=== PATIENT | female | born 2005 | race Caucasian/White ===

== ENCOUNTER 2024-11-23 20:42 | Emergency (ER) | payer SELFPAY ==
[2024-11-23 20:45] VITALS: BP 121/96; PULSE 118; TEMP 36.9; O2SAT 98; BMI 23.6
--- NOTE | 2024-11-23 20:51 | US_ITS ---
The [address] [address] Patient Name: JODEE ANG MRN: [id number] date: 2005 Sex: F Assigned Patient Location: ER Current Patient Location: ER Accession/Order Number: [id number] Exam Date: 11/23/2024 21:20 Report Date: 11/23/2024 22:28 At the request of: MITALI GARDINER Procedure: US OB transvaginal US OB transvaginal HISTORY: vag bleed COMPARISONS: None TECHNIQUE: Transvaginal imaging the pelvis was performed. FINDINGS: There is a gestational sac and a pole. However, there is no heartbeat. The yolk sac is not well delineated. RIGHT OVARY: Within normal limits without suspicious masses or cyst. There is normal blood flow. The right ovary measures 2.5 x 1.5 x 2.4 cm. LEFT OVARY: Within normal limits without suspicious masses or cyst. There is normal blood flow. The left ovary measures 2.2 x 1.9 x 1.2 cm. OTHER:There is no significant free fluid in the pelvis. US/US OB transvaginal IMPRESSION: There is a gestational sac and a . However, there is no definitive heartbeat. This could be due to early gestational age. Correlation with serial beta hCG levels is recommended. Repeat sonography can be performed in one to 2 weeks. Electronically authenticated by: GLADIS MOROCHO Date: 11/23/2024 22:28
--- NOTE | 2024-11-23 20:54 | ED_ITS ---
HPI HPI - General Adult General Chief complaint: Vaginal Bleeding Stated complaint: BLEEDING 5 WKS Time Seen by Provider: 11/23/24 20:51 Source: patient Mode of arrival: walk-in History of Present Illness HPI narrative: Patient is a 19-year-old who is presenting to the ER with chief complaint of vaginal bleeding. Patient is a G1, P0. Patient did [id number] test 3 of them 3 days ago and found out that she was . She is not taking vitamins. Patient boyfriend is at bedside. Patient has no HV[employer] MECH[employer]. Patient denies any type of abuse, assault, falls, trauma or accidents. Patient has had no traumatic intercourse last 24 hours. No foreign bodies or any other products into the vaginal canal. No bowel or bladder changes. Patient is also having left-sided left lateral chest wall pain as well. Patient stated that she started bleeding approximately 2 hours prior to arrival with mild to moderate amount of blood and clots. Patient's bleeding has been continuous for the past 2 hours. All systems are negative except as noted/marked. All systems reviewed and otherwise negative. Nurses note and vital signs reviewed and patient is not hypoxic. Nurses note and vital signs reviewed and patient is not hypoxic. General: The patient appears well and in no apparent distress. Patient is resting comfortably on cart. Skin: Warm, dry, no pallor noted. There is no rash noted. Head: Normocephalic, atraumatic Eye: Normal conjunctiva Ears, Nose, Mouth, and Throat: oral mucosa is moist Cardiovascular: Regular Rate and Rhythm Respiratory: Patient is in no distress, no accessory muscle use, lungs are clear to auscultation, no wheezing, rales or rhonchi Back: non-tender, no CVA tenderness bilaterally to percussion. GI: Normal bowel sounds, no tenderness to palpation, no masses appreciated. No rebound guarding, or rigidity noted. : Pelvic exam was completed with Fay Montero RN at bedside for entire duration of the exam. Speculum exam showed normal external genitalia, there was no evidence of white/clear discharge in vaginal vault. There was moderate amount of evidence of blood and small clot noted in the vaginal vault. Patient's os was open. Bimanual exam showed no cervical motion tenderness, no adnexal tenderness, no masses were appreciated. Os is closed. Musculoskeletal: The patient has no evidence of calf tenderness, no pitting edema, symmetrical pulses noted bilaterally Neurological: A&O x4, normal speech Psychiatric: Cooperative Related Data Allergies Allergy/AdvReac Type Severity Reaction Status Date / Time No Known Drug Allergies Allergy Verified 11/23/24 20:49 Opioid HPI Opioid Management Most Recent Opioid Data: Last Pain Scale 3 11/23/24 20:50 11/23/24 PFSH PFSH Social History Little interest or pleasure in doing things: not at all Feeling down, depressed, or hopeless: not at all Exam Constitutional Vital Signs, click to edit/add: Last Vital Signs Temp 98.4 F 11/23/24 20:45 Pulse 90 11/23/24 22:23 Resp 18 11/23/24 20:45 BP 121/96 H 11/23/24 20:45 Pulse Ox 98 11/23/24 20:45 O2 Del Method Room Air 11/23/24 20:45 Course Vital Signs Vital signs: Vital Signs Temperature 98.4 F 11/23/24 20:45 Pulse Rate 118 H 11/23/24 20:45 Respiratory Rate 18 11/23/24 20:45 Blood Pressure 121/96 H 11/23/24 20:45 Pulse Oximetry 98 11/23/24 20:45 Oxygen Delivery Method Room Air 11/23/24 20:45 Temperature 98.4 F 11/23/24 20:45 Pulse Rate 90 11/23/24 22:23 Respiratory Rate 18 11/23/24 20:45 Blood Pressure 121/96 H 11/23/24 20:45 Pulse Oximetry 98 11/23/24 20:45 Oxygen Delivery Method Room Air 11/23/24 20:45 Medical Decision Making [facility] Narrative Medical decision making narrative: 2209 patient's case was discussed with Dr. Lott. Patient's hCG quant is 11,000. Ultrasound shows IMPRESSION: There is a gestational sac and a . However, there is no definitive heartbeat. This could be due to early gestational age. Correlation with serial beta hCG levels is recommended. Repeat sonography can be performed in one to 2 weeks. Patient increase fluids. Patient use Tylenol as needed for pain. Patient will call Dr. Lott on Tuesday for repeat evaluation. A repeat hCG was given to the patient to draw on Tuesday, with results going to Dr. Lott. Patient understands this. If patient is having any significant or severe pain, if patient is having significant amount of vaginal bleeding, lightheaded, dizzy, shortness of breath, return back to the ER for reevaluation. Patient understands this very clearly. Patient was told this and this was Printed on paperwork Lab Data Labs: Lab Results 11/23/24 Range/Units 21:00 WBC 13.7 H (4.0-11.0) 10^3/uL RBC 4.64 (4.20-5.40) 10^6/uL Hgb 14.0 (12.0-16.0) g/dL Hct 41.6 (36.0-48.0) % MCV 89.7 (81.0-99.0) fL MCH 30.2 (26.7-34.0) pg MCHC 33.7 (29.9-35.2) g/dL RDW 12.8 (11.0-15.0) % Plt Count 264 (150-450) 10^3/uL MPV 11.3 (9.5-13.5) fL Neut % (Auto) 65.5 (43.0-75.0) % Lymph % (Auto) 26.0 (20.5-60.0) % [place] % (Auto) 6.8 (1.7-12.0) % Eos % (Auto) 1.2 (0.9-7.0) % Baso % (Auto) 0.4 (0.2-2.0) % Neut # (Auto) 9.0 H (1.4-6.5) 10^3/uL Lymph # (Auto) 3.6 (1.2-3.8) 10^3/uL [place] # (Auto) 0.9 H (0.3-0.8) 10^3/uL Eos # (Auto) 0.2 (0.0-0.7) 10^3/uL Baso # (Auto) 0.1 (0.0-0.1) 10^3/uL Abs Immat Gran (auto) 0.02 (0.00-0.03) 10^3/uL Imm/Tot Granulo (auto) 0.1 (0.0-0.5) % HCG, Quant 10544 mIU/mL Blood Type A Negative Discharge Plan Discharge Chief Complaint: Vaginal Bleeding Clinical Impression: Threatened miscarriage Patient Disposition: Home, Self-Care Time of Disposition Decision: 22:33 Condition: Fair Print Language: Amharic Instructions: Threatened Miscarriage (ED) Additional Instructions: Increase fluids at home, Gatorade, Powerade, water. Use Tylenol every 4 hours as needed for pain, max dose of Tylenol is 3000 mg [address] Lott on Tuesday for follow-up in the office. He will need to have a complete pelvic and Pap exam done since you are 19 years old and sexually active. If you are having intractable abdominal pain, significant vaginal bleeding, or any other acute complaints, return back to the ER Referrals: Physician,Non-Staff, MD [Primary Care Provider] - 1 week
[2024-11-23 21:11] LABS: Basophils Absolute Auto 0.1 10^3/uL (0.0-0.1); Basophils Percent Auto 0.4 % (0.2-2.0); Eosinophils Absolute Auto 0.2 10^3/uL (0.0-0.7); Eosinophils Percent Auto 1.2 % (0.9-7.0); Hematocrit 41.6 % (36.0-48.0); Immature Granulocytes Abs Auto 0.02 10^3/uL (0.00-0.03); Immature Granulocytes Pct Auto 0.1 % (0.0-0.5); Lymphocytes Absolute Auto 3.6 10^3/uL (1.2-3.8); Mean Corpuscular HGB Conc 33.7 g/dL (29.9-35.2); Mean Corpuscular Hemoglobin 30.2 pg (26.7-34.0); Mean Corpuscular Volume 89.7 fL (81.0-99.0); Mean Platelet Volume 11.3 fL (9.5-13.5); Monocytes Absolute Auto 0.9 10^3/uL (0.3-0.8); Monocytes Percent Auto 6.8 % (1.7-12.0); Neutrophils Percent Auto 65.5 % (43.0-75.0); Platelet Count 264 10^3/uL (150-450); Red Blood Count 4.64 10^6/uL (4.20-5.40); Red Cell Distribution Width 12.8 % (11.0-15.0); White Blood Count 13.7 10^3/uL (4.0-11.0)
[2024-11-23] MEDS: ACETAMINOPHEN 500 MG TABLET PO (21:47)
[2024-11-23 21:53] LABS: HCG Quantitative 11751 mIU/mL
[2024-11-23 22:23] VITALS: PULSE 90
[2024-11-23 22:46] VITALS: BP 121/96; PULSE 90; O2SAT 98
== END 2024-11-23 22:48 | disposition home or self-care (01) ==
PROVIDERS: Emergency Provider Emergency Medicine
DX: O20.0 Threatened abortion (principal); Z3A.01 Less than 8 weeks gestation of pregnancy
CPT/HCPCS: 36415; 76817; 84702; 85025; 86900; 86901; 96374; 99285

== ENCOUNTER 2025-03-14 07:57 | Emergency (ER) | payer SELFPAY ==
[2025-03-14 08:11] VITALS: BP 119/87; PULSE 120; TEMP 36.9; O2SAT 100; BMI 21.0
--- NOTE | 2025-03-14 08:18 | ED.GENADUL1 ---
HPI HPI - General Adult General Chief complaint: Nausea/Vomiting/Diarrhea Stated complaint: CHEST PAINS, VOMITING, Time Seen by Provider: 03/14/25 07:58 Source: patient Mode of arrival: walk-in Limitations: no limitations History of Present Illness HPI narrative: Patient states she developed vaginal bleeding today. LMP was 24 February and she took Plan B 3 or 4 days ago. She had a recent miscarriage in November. She denies any possibility of at this time. She states this morning she noticed pain in the anterior chest with nausea and vomiting. The pain moves down into her upper abdomen. Related Data Previous Rx's ?Medication ?Instructions ?Recorded promethazine 12.5 mg tablet 12.5 mg PO TID PRN nausea and 03/14/25 vomiting #10 tabs Allergies Allergy/AdvReac Type Severity Reaction Status Date / Time No Known Drug Allergies Allergy Verified 03/14/25 08:11 Opioid HPI Opioid Management Most Recent Opioid Data: Last Pain Scale 8 Today, 09:58 Last MAR Pain Assessment Today, 08:35 Ur Phencyclidine Scrn, (NEGATIVE) Negative Today, 10:43 Review of Systems ROS Status of ROS 10 or more systems reviewed and unremarkable except as noted in history and below [facility] Social History Little interest or pleasure in doing things: not at all Feeling down, depressed, or hopeless: not at all Exam Narrative Exam Narrative: Patient was in acute distress upon arrival. She is tachycardic and tearful. She complains of an tingling in her extremities and is hyperventilating. HEENT exam is normal to inspection. Neck is supple. Lung sounds are clear to auscultation bilaterally. Chest pain is reproducible with local pressure. Heart has rapid rate with regular rhythm. Abdomen soft and not distended. There is diffuse tenderness in the upper abdomen but without guarding or peritoneal signs and she does not have organomegaly. She moves all extremities actively. Speech and mentation are clear and intact. There is no facial asymmetry. Constitutional Vital Signs, click to edit/add: Last Vital Signs Temp 98.4 F 03/14/25 08:11 Pulse 120 H 03/14/25 08:11 Resp 28 H 03/14/25 08:11 BP 119/87 03/14/25 08:11 Pulse Ox 100 03/14/25 08:11 O2 Del Method Room Air 03/14/25 08:11 Course Vital Signs Vital signs: Vital Signs Temperature 98.4 F 03/14/25 08:11 Pulse Rate 120 H 03/14/25 08:11 Respiratory Rate 28 H 03/14/25 08:11 Blood Pressure 119/87 03/14/25 08:11 Pulse Oximetry 100 03/14/25 08:11 Oxygen Delivery Method Room Air 03/14/25 08:11 Temperature 98.4 F 03/14/25 08:11 Pulse Rate 120 H 03/14/25 08:11 Respiratory Rate 28 H 03/14/25 08:11 Blood Pressure 119/87 03/14/25 08:11 Pulse Oximetry 100 03/14/25 08:11 Oxygen Delivery Method Room Air 03/14/25 08:11 Medical Decision Making MDM Narrative Medical decision making narrative: The twelve-lead EKG is interpreted by me. It shows sinus rhythm with a rate of 100 bpm. There is sinus arrhythmia. There is right axis deviation and no acute ST elevation. Cardiac workup is negative. Dimer is normal. Patient's symptoms are partly due to the onset of her uterine bleeding after taking Plan B which may be causing some pain. However she is anxious and hyperventilating also she initially dry and I did the use of any drugs but urine toxicology did show the presence of cannabis which she now admits to daily use. While earlier meds did not help her whole lot after the administration of IV Compazine, Benadryl and Ativan she is much more relaxed and her discomfort is improved. I feel her symptoms were pain triggered by her current uterine bleeding followed by hyperemesis secondary to cannabis use. She is placed on promethazine upon discharge and is to follow-up with PCP of choice. She may return for worsening symptoms. Her test was negative. Lab Data Labs: Lab Results 03/14/25 03/14/25 Range/Units 08:26 10:43 WBC 12.6 H (4.0-11.0) 10^3/uL RBC 4.57 (4.20-5.40) 10^6/uL Hgb 13.6 (12.0-16.0) g/dL Hct 40.8 (36.0-48.0) % MCV 89.3 (81.0-99.0) fL MCH 29.8 (26.7-34.0) pg MCHC 33.3 (29.9-35.2) g/dL RDW 12.7 (11.0-15.0) % Plt Count 234 (150-450) 10^3/uL MPV 11.8 (9.5-13.5) fL Neut % (Auto) 79.6 H (43.0-75.0) % Lymph % (Auto) 13.2 L (20.5-60.0) % [place] % (Auto) 6.1 (1.7-12.0) % Eos % (Auto) 0.4 L (0.9-7.0) % Baso % (Auto) 0.5 (0.2-2.0) % Neut # (Auto) 10.1 H (1.4-6.5) 10^3/uL Lymph # (Auto) 1.7 (1.2-3.8) 10^3/uL [place] # (Auto) 0.8 (0.3-0.8) 10^3/uL Eos # (Auto) 0.1 (0.0-0.7) 10^3/uL Baso # (Auto) 0.1 (0.0-0.1) 10^3/uL Abs Immat Gran (auto) 0.03 (0.00-0.03) 10^3/uL Imm/Tot Granulo (auto) 0.2 (0.0-0.5) % D-Dimer 0.22 (<=0.59) mg/L FEU Sodium 140 (136-145) mmol/L Potassium 3.8 (3.5-5.1) mmol/L Chloride 103 (98-107) mmol/L Carbon Dioxide 22.0 (21.0-32.0) mmol/L Anion Gap 18.8 BUN 10.0 (7.0-18.0) mg/dL Creatinine 0.77 (0.55-1.02) mg/dL Est GFR ( Amer) >60 (>=60 mL/min/1.73m^2) Est GFR (Non-Af Amer) >60 (>=60 mL/min/1.73m^2) BUN/Creatinine Ratio 13.0 Glucose 113 H (74-106) mg/dL Calcium 9.2 (8.5-10.1) mg/dL Total Bilirubin 0.4 (0.2-1.0) mg/dL AST 12 L (15-37) U/L ALT 13 L (14-59) U/L Alkaline Phosphatase 52 (46-116) U/L Troponin I High Sens <4.0 L (4.0-51.3) pg/mL Total Protein 7.1 (6.4-8.2) g/dL Albumin 3.7 (3.4-5.0) g/dL Globulin 3.4 g/dL Albumin/Globulin Ratio 1.1 Lipase 31.0 (16.0-77.0) U/L Serum HCG, Qual Negative (NEGATIVE) Urine Color Lt. yellow (YELLOW) Urine Clarity Clear (CLEAR) Urine pH 8.5 (5.0-9.0) Ur Specific [place] 1.015 (1.005-1.025) Urine Protein Trace (NEG/TRACE) mg/dL Urine Glucose (UA) Negative (NEGATIVE) mg/dL Urine Ketones >=80 A (NEGATIVE) mg/dL Urine Occult Blood Negative (NEGATIVE) Urine Nitrite Negative (NEGATIVE) Urine Bilirubin Negative (NEGATIVE) Urine Urobilinogen 0.2 (0.2-1.0) EU/dL Ur Leukocyte Esterase Negative (NEGATIVE) Urine Opiates Screen Positive A (NEGATIVE) Ur Buprenorphine Scrn Negative (NEGATIVE) Ur Oxycodone Screen Negative (NEGATIVE) Urine Methadone Screen Negative (NEGATIVE) Ur Barbiturates Screen Negative (NEGATIVE) U Tricyclic Antidepress Negative (NEGATIVE) Ur Phencyclidine Scrn Negative (NEGATIVE) Ur Amphetamines Screen Negative (NEGATIVE) U Methamphetamines Scrn Negative (NEGATIVE) U Benzodiazepines Scrn Negative (NEGATIVE) Urine Cocaine Screen Negative (NEGATIVE) U Cannabinoids Screen Positive A (NEGATIVE) Discharge Plan Discharge Chief Complaint: Nausea/Vomiting/Diarrhea Clinical Impression: Atypical chest pain Nausea & vomiting Qualifiers: Vomiting type: unspecified Qualified Code(s): R11.2 - Nausea with vomiting, unspecified Patient Disposition: Home, Self-Care Time of Disposition Decision: 12:20 Condition: Fair Mode of Transportation: Private Vehicle Prescriptions / Home Meds: New promethazine 12.5 mg tablet 12.5 mg PO TID PRN (Reason: nausea and vomiting) Qty: 10 0RF Print Language: Sami Instructions: Acute Nausea and Vomiting (ED), Cannabis Use Disorder (ED), Noncardiac Chest Pain (ED) Additional Instructions: Stop using cannabis. Follow-up with physician of choice next week. Return for worsening symptoms. Referrals: Physician,Non-Staff, MD [Primary Care Provider] - 1 week
[2025-03-14] MEDS: KETOROLAC TROMETHAMINE 30 MG/ML VIAL 15 MG IVP ×2 (08:35→09:58)
[2025-03-14] MEDS: ONDANSETRON PF 4 MG/2 ML VIAL IV (08:35)
[2025-03-14] MEDS: MORPHINE SULFATE 4 MG/ML VIAL IV (08:35)
[2025-03-14] MEDS: 0.9 % SODIUM CHLORIDE 1,000 ML 1000 ML IV (08:36)
[2025-03-14 08:46] LABS: Basophils Absolute Auto 0.1 10^3/uL (0.0-0.1); Basophils Percent Auto 0.5 % (0.2-2.0); Eosinophils Absolute Auto 0.1 10^3/uL (0.0-0.7); Eosinophils Percent Auto 0.4 % (0.9-7.0); Hematocrit 40.8 % (36.0-48.0); Hemoglobin 13.6 g/dL (12.0-16.0); Immature Granulocytes Abs Auto 0.03 10^3/uL (0.00-0.03); Immature Granulocytes Pct Auto 0.2 % (0.0-0.5); Lymphocytes Absolute Auto 1.7 10^3/uL (1.2-3.8); Lymphocytes Percent Auto 13.2 % (20.5-60.0); Mean Corpuscular HGB Conc 33.3 g/dL (29.9-35.2); Mean Corpuscular Hemoglobin 29.8 pg (26.7-34.0); Mean Corpuscular Volume 89.3 fL (81.0-99.0); Mean Platelet Volume 11.8 fL (9.5-13.5); Monocytes Absolute Auto 0.8 10^3/uL (0.3-0.8); Monocytes Percent Auto 6.1 % (1.7-12.0); Neutrophils Absolute Auto 10.1 10^3/uL (1.4-6.5); Neutrophils Percent Auto 79.6 % (43.0-75.0); Platelet Count 234 10^3/uL (150-450); Red Blood Count 4.57 10^6/uL (4.20-5.40); Red Cell Distribution Width 12.7 % (11.0-15.0); White Blood Count 12.6 10^3/uL (4.0-11.0)
[2025-03-14 08:59] LABS: HCG Qualitative NEGATIVE (NEGATIVE); Internal Control Within Normal Limits
[2025-03-14 09:07] LABS: D Dimer 0.22 mg/L FEU (<=0.59)
[2025-03-14 09:08] LABS: Alanine Aminotransferase 13 U/L (14-59); Albumin Globulin Ratio 1.1; Albumin Level 3.7 g/dL (3.4-5.0); Alkaline Phosphatase 52 U/L (46-116); Anion Gap 18.8; Aspartate Amino Transferase 12 U/L (15-37); Bilirubin Total 0.4 mg/dL (0.2-1.0); Calcium 9.2 mg/dL (8.5-10.1); Chloride 103 mmol/L (98-107); Estimated GFR (African America >60 (>=60 mL/min/1.73m^2); Estimated GFR (Non-African Ame >60 (>=60 mL/min/1.73m^2); Globulin 3.4 g/dL; Glucose 113 mg/dL (74-106); Potassium 3.8 mmol/L (3.5-5.1); Sodium 140 mmol/L (136-145); Total Protein 7.1 g/dL (6.4-8.2)
[2025-03-14 09:11] LABS: Troponin I High Sensitivity <4.0 pg/mL (4.0-51.3)
[2025-03-14 10:52] LABS: Bilirubin Urine NEGATIVE (NEGATIVE); Blood Urine NEGATIVE (NEGATIVE); Clarity Urine CLEAR (CLEAR); Color Urine LT. YELLOW (YELLOW); Glucose Urine UA NEGATIVE (NEGATIVE); Ketones Urine >=80 mg/dL (NEGATIVE); Leukocyte Esterase Urine NEGATIVE (NEGATIVE); Nitrite Urine NEGATIVE (NEGATIVE); Protein Urine TRACE mg/dL (NEG/TRACE); Specific Gravity Urine 1.015 (1.005-1.025); Urobilinogen Urine 0.2 EU/dL (0.2-1.0); pH Urine 8.5 (5.0-9.0)
[2025-03-14 10:58] LABS: Urine Microscopic Indicated NO
[2025-03-14 11:03] LABS: Amphetamine Screen Urine NEGATIVE (NEGATIVE); Barbiturates Screen Urine NEGATIVE (NEGATIVE); Benzodiazepines Screen Urine NEGATIVE (NEGATIVE); Buprenorphine Screen Urine NEGATIVE (NEGATIVE); Cannabinoid Screen Urine POSITIVE (NEGATIVE); Cocaine Screen Urine NEGATIVE (NEGATIVE); Methadone Screen Urine NEGATIVE (NEGATIVE); Methamphetamines Screen Urine NEGATIVE (NEGATIVE); Opiate Screen Urine POSITIVE (NEGATIVE); Oxycodone Screen Urine NEGATIVE (NEGATIVE); Phencyclidine Screen Urine NEGATIVE (NEGATIVE); Tricyclic Antidepressant Urine NEGATIVE (NEGATIVE)
[2025-03-14] MEDS: LORAZEPAM 2 MG/ML VIAL 0.5 MG IV (11:34)
[2025-03-14] MEDS: DIPHENHYDRAMINE HCL 50 MG/ML VIAL 25 MG IVP (11:37)
[2025-03-14] MEDS: PROCHLORPERAZINE 10 MG/2 ML VIAL 5 MG IV (11:44)
[2025-03-14 12:32] VITALS: BP 126/87; PULSE 105; O2SAT 98
--- NOTE | 2025-03-14 17:33 | ECG_ITS ---
[facility] Test Date: 2025-03-14 Pat Name: JODEE ANG Department: Room: - Gender: Female Soap Tender: : 2005 Requested By: [id number] Order Number: [id number] Reading MD: NISHANT LOPEZ M.D. Measurements Intervals [place] Rate: 100 P: 90 CO: 116 QRS: 100 QRSD: 86 T: 41 QT: 336 QTc: 393 Interpretive Statements Sinus tachycardia with sinus arrhythmia 2210 Short CO interval 7102 Moderate right axis deviation 9150 abnormal ECG No previous ECG available for comparison Electronically Signed On 03-14-2025 23:23:10 EDT by NISHANT LOPEZ M.D.
== END 2025-03-14 12:32 | disposition home or self-care (01) ==
PROVIDERS: Emergency Provider Emergency Medicine
DX: R07.89 Other chest pain (principal); R11.2 Nausea with vomiting, unspecified
CPT/HCPCS: 36415; 71046; 80053; 80307; 81003; 83690; 84484; 84703; 85025; 85378; 93005; 96361; 96374; 96375; 96376; 99284; J0780; J1200; J1885; J2060; J2270; J2405